=== PATIENT | male | born 1985 | race Caucasian/White ===

== ENCOUNTER 2024-09-27 09:21 | Emergency (ER) | payer OTHER | END 2024-09-27 11:20 | disposition home or self-care (01) | LOC: JD.ED 09:21 | DX: S93.422A Sprain of deltoid ligament of left ankle, initial encounter (principal); X50.1XXA Overexertion from prolonged static or awkward postures, initial encounter; Y93.89 Activity, other specified | CPT/HCPCS: 73610-26-LT; 73610-LT; 99283; 99284 ==